=== PATIENT | male | born 1980 | race African-American/Black ===

== ENCOUNTER 2023-12-19 15:28 | Emergency (ER) | payer BC ==
[2023-12-19 15:48] VITALS: BP 121/77; PULSE 87; RESP 18; TEMP 98; BMI 25.7
[2023-12-19] MEDS ORDERED: LIDOCAINE 4% PATCH TP ONE (16:08)
[2023-12-19] MEDS ORDERED: KETOROLAC TROMETHAMINE 30 MG/1 ML VIAL ONE (16:08)
[2023-12-19] MEDS ORDERED: ACETAMINOPHEN 500 MG TABLET (FP) ONE (16:08)
[2023-12-19] MEDS: ACETAMINOPHEN 500 MG TABLET (FP) PO ONE (16:15)
[2023-12-19] MEDS: KETOROLAC TROMETHAMINE 30 MG/1 ML VIAL IM ONE (16:16)
[2023-12-19] MEDS: LIDOCAINE 4% PATCH TP ONE (16:16)
[2023-12-19] MEDS ORDERED: LIDOCAINE PATCH REMOVAL MC SCH (22:00)
== END 2023-12-19 17:00 | disposition home or self-care (01) ==
LOC: JERFT 15:28 → JER 15:28 → JERFT 17:00
PROC: 3E0233Z Introduction of Anti-inflammatory into Muscle, Percutaneous Approach (ICD-10-PCS; principal; 2023-12-19)
DX: M54.2 Cervicalgia (principal); M25.512 Pain in left shoulder; M62.838 Other muscle spasm
CPT/HCPCS: 99284-25